=== PATIENT | male | born 1990 | race Caucasian/White ===

== ENCOUNTER 2017-07-18 12:16 | Emergency (ER) | payer OTHER ==
[~2017-07-18] VITALS: Ht 157.5 cm; Wt 68.0 kg
[~2017-07-18 12:16] MED LIST: BOOSLIQ GT; BOOSLIQ77 G-TUBE; KETOPOW G-TUBE; WHEEMIS3; [UNRECOGNIZED DRUG - CODE] G-TUBE; [UNRECOGNIZED DRUG - CODE] GT; [UNRECOGNIZED DRUG - CODE] XX; [UNRECOGNIZED DRUG - OTHER]
[2017-07-18 12:19] VITALS: BP 117/71; PULSE 97; RESP 16; O2SAT 95
--- NOTE | 2017-07-18 16:18 | PD ---
HPI Chief Complaint: GI Complaint Time Seen by Provider: 15:17 Travel History International Travel<30 days: No Contact w/Intl Traveler<30days: No Traveled to known affect area: No History of Present Illness HPI This patient presents with father for replacement of his G-tube. Patient has 100% of his calories to the G-tube. He rolled over this morning and the G-tube came out. Duration 8 hours. No alleviating factors. Symptoms severity is mild. 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 Father usually replaces his G-tube but he could not get it back and so brought him to the ER. PFSH Past Medical History Blood Disorders: No Cancer: No Cardiovascular Problems: No Cerebral Palsy: Yes Chemotherapy: No Developmental Delay: Yes Endocrine: No Gastrointestinal Disorders: Yes GERD: Yes (CORRECTED BY FUNDAL PLACTATION) Genitourinary: Yes (MAPLE SYRUP URINE DISEASE) Immune Disorder: No Musculoskeletal: No Neurologic: Yes Psychiatric: No Reproductive: No Respiratory: No Radiation Therapy: No Seizures: Yes Past Surgical History Abdominal Surgery: Yes (FUNDAL PLACATION, PEG TUBE PLACEMENT) Body Medical Devices: PEG LLQ Other Surgery: Yes Social History Alcohol Use: No Tobacco Use: No Substance Use: No Allergies-Medications (Allergen,Severity, Reaction): Coded Allergies: vancomycin (Verified Allergy, Severe, Flushing, hives, 07/18/17) Reported Meds & Prescriptions Reported Meds & Active Scripts Active Wheelchair (Device) 1 Mis Mis Ea .ROUTE DIRECTED Please replace and give wheelchair maintenance as needed. Boost Plus (Lactose-Reduced Food) 0.06 Gram-1.5 Kcal/Ml Liquid 1 Unit G-TUBE DAILY 2 cases per month Pfd 2 (Nutritional Supplements) 1 Pow Pow 250 Gm G-TUBE DAILY Ketonex-2 (Nutritional Supplements) 1 Pow Pow 267 Gm G-TUBE DAILY Compat 18Fr Gastrostomy T (Feeding Tubes - Tubing) 1 Mis Mis Units XX DAILY [g-tube supplies] Units Pfd 2 (Nutritional Supplements) 400 Kcal/100 Gram Pow 250 Gm GT DAILY Boost Plus (Nutritional Supplements) Vanilla Liq 8 Oz GT DAILY Review of Systems General / Constitutional: No: Fever Eyes: No: Visual changes HENT: No: Headaches Cardiovascular: No: Chest Pain or Discomfort Respiratory: No: Shortness of Breath Gastrointestinal: No: Abdominal Pain Genitourinary: No: Dysuria Musculoskeletal: No: Pain Skin: No Rash Neurologic: No: Weakness Psychiatric: No: Depression Endocrine: No: Polydipsia Hematologic/Lymphatic: No: Easy Bruising Physical Exam Narrative GENERAL: Disheveled well-developed patient in no apparent distress. SKIN: Focused skin assessment reveals no rash and nodules. Skin is Warm and dry. HEAD: Atraumatic. Normocephalic. EYES: Pupils equal and round. No scleral icterus. No injection or drainage. ENT: No nasal bleeding or discharge. Mucous membranes pink and moist. NECK: Trachea midline. No JVD. CARDIOVASCULAR: Regular rate and rhythm. No murmur appreciated. RESPIRATORY: No accessory muscle use. Clear to auscultation. Breath sounds equal bilaterally. GASTROINTESTINAL: Abdomen soft, non-tender, nondistended. Hepatic and splenic margins not palpable. Has a left upper quadrant G-tube hole. MUSCULOSKELETAL: No obvious deformities. No clubbing. No cyanosis. No edema. NEUROLOGICAL: Awake and alert. No obvious cranial nerve deficits. Motor grossly within normal limits. Normal speech. PSYCHIATRIC: Appropriate mood and affect; insight and judgment reduced from genetic condition Data Data Last Documented VS Vital Signs Date Time Temp Pulse Resp B/P (MAP) Pulse Ox O2 Delivery O2 Flow Rate FiO2 07/18/17 12:19 97 16 117/71 (86) 95 MDM Medical Decision Making Medical Screen Exam Complete: Yes Emergency Medical Condition: Yes Medical Record Reviewed: Yes Differential Diagnosis G-tube malfunction, G-tube displacement Narrative Course I have reviewed the patient's electronic medical record. Unfortunately the patient's G-tube hole had mostly closed up. I got a replacement 18 Turkish tube which would not go in. Coincidently GI physician Dr. Zamora was in the emergency department and he evaluated the situation. He was able to dilate the tiny opening using various size NG tube until the 18 Turkish tube could be replaced. Patient now has a new feeding tube which has been secured. Diagnosis Primary Impression: Dislodged gastrostomy tube Additional Impression: Maple Syrup Urine Dis Varient Additional Instructions: The patient was advised to follow up with their physician and return if they worsen. Med/Other Pt SpecificInfo: Other Disposition: 01 DISCHARGE HOME Condition: Stable Favian Conti MD Jul 18, 2017 16:18
== END 2017-07-18 16:34 | disposition home or self-care (01) ==
LOC: NEPD 12:16
DX: Z43.1 Encounter for attention to gastrostomy (principal); E71.0 Maple-syrup-urine disease; G80.9 Cerebral palsy, unspecified
CPT/HCPCS: 49452